=== PATIENT | female | born 1965 | race Caucasian/White ===

== ENCOUNTER 2021-11-23 12:02 | Emergency (ER) | payer BC ==
[2021-11-23 12:11] VITALS: TEMP 98.8
--- NOTE | 2021-11-23 12:30 | ED ---
General Adult HPI - General Chief complaint: Upper Respiratory Infection Stated complaint: covid+, wants infusion Time Seen by Provider: 11/23/21 12:06 Source: patient Mode of arrival: ambulatory Limitations: no limitations - History of Present Illness Initial comments: Dictation was produced using [employer] dictation software. please excuse any gramm atical, word or spelling errors. Chief Complaint: 56-year-old female presents the emergency department requesting monoclonal antibody infusion after testing positive for COVID-19 History of Present Illness: 56-year-old female she is a type I diabetic. She is insulin-dependent. She gets her insulin via insulin pump. Patient's been having symptoms of COVID-19 for the last 48 hours. Patient is not fully vaccinated. She received 1 dose of the 2 ports series of Moderna. She has having symptoms of nasal congestion, nonproductive cough and sore throat. She tested positive today. She denies any significant shortness of breath. 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 The ROS documented in this emergency department record has been reviewed and confirmed by me. Those systems with pertinent positive or negative responses have been documented in the HPI. All other systems are other negative and/or noncontributory. PHYSICAL EXAM: General Impression: Alert and oriented x3, not in acute distress HEENT: Normocephalic atraumatic, extra-ocular movements intact, pupils equal and reactive to light bilaterally, mucous membranes moist. Cardiovascular: Heart regular rate and rhythm Chest: Able to complete full sentences, no retractions, no tachypnea Abdomen: abdomen soft, non-tender, non-distended, no organomegaly Musculoskeletal: Pulses present and equal in all extremities, no peripheral edema Motor: no focal deficits noted Neurological: CN II-XII grossly intact, no focal motor or sensory deficits noted Skin: Intact with no visualized rashes Psych: Normal affect and mood ED course: 56-year-old female requesting monoclonal antibody infusion after testing positive for COVID-19 today. She is symptomatic for 48 hours. Vital signs upon arrival are within acceptable limits. She is not hypoxic. Criteria for monoclonal antibody infusion. Risks and benefits were discussed. Patient infused antibodies and tolerated infusion well. Patient observed in emergency department for one hour after infusion with no complications. Patient will be discharged. - Related Data Allergies Allergy/AdvReac Type Severity Reaction Status Date / Time Sulfa (Sulfonamide Allergy Rash/Hives Verified 11/23/21 12:11 Antibiotics) Review of Systems ROS Statement: Those systems with pertinent positive or pertinent negative responses have been documented in the HPI. ROS Other: All systems not noted in ROS Statement are negative. Past Medical History Past Medical History: Diabetes Mellitus History of Any Multi-Drug Resistant Organisms: None Reported Past Surgical History: Orthopedic Surgery Past Psychological History: No Psychological Hx Reported Smoking Status: Never smoker Past Alcohol Use History: Occasional Past Drug Use History: None Reported General Exam Limitations: no limitations Course Vital Signs 11/23/21 11/23/21 12:08 13:07 Temperature 98.8 F Pulse Rate 89 Respiratory 20 18 Rate Blood Pressure 126/70 O2 Sat by Pulse 96 Oximetry Disposition Clinical Impression: COVID-19 Disposition: HOME SELF-CARE Condition: Fair Instructions (If sedation given, give patient instructions): COVID-19 (Coronavirus Disease 2019) (ED) Is patient prescribed a controlled substance at d/c from ED?: No Referrals: Nonstaff,Physician [Primary Care Provider] - 1-2 days Time of Disposition: 14:23
[2021-11-23 13:12] VITALS: RESP 18
[2021-11-23] MEDS ORDERED: BEBTELOVIMAB (EUA) 175 MG/2 ML VIAL IV ONE (13:15)
[2021-11-23 14:34] VITALS: BP 126/84; PULSE 84
== END 2021-11-23 14:35 | disposition home or self-care (01) ==
LOC: EC 12:02
DX: U07.1 COVID-19 (principal); E10.9 Type 1 diabetes mellitus without complications; Z79.4 Long term (current) use of insulin; Z88.2 Allergy status to sulfonamides
CPT/HCPCS: 99283; Q0222